=== PATIENT | female | born 1970 | race Caucasian/White ===

== ENCOUNTER 2022-03-13 20:53 | Emergency (ER) | payer OTHER, BC ==
[2022-03-13] MEDS ORDERED: Acetaminophen 325 MG Tab PO ONE (21:04)
[2022-03-13] MEDS ORDERED: Acetaminophen/HYDROcodone 325-10 MG Tab PO ONE (22:06)
[2022-03-13] MEDS ORDERED: Iopamidol 612 MG/ML 100 ML Bottle ONE (23:12)
[2022-03-13 23:13] LABS: ANION GAP 13.2 mmol/L (5-15)
[2022-03-14] MEDS ORDERED: Take Home: Acetaminophen/oxyCODONE 325-5 MG, 5 Tab Pack PO ONE (00:23)
[2022-03-14] MEDS ORDERED: Orphenadrine 100 MG Tab.ER PO ONE (21:00)
== END 2022-03-14 00:45 | disposition home or self-care (01) ==
LOC: VM.ED 20:53
DX: S13.4XXA Sprain of ligaments of cervical spine, initial encounter (principal); M43.6 Torticollis; I10 Essential (primary) hypertension; Z88.0 Allergy status to penicillin; V89.2XXA Person injured in unspecified motor-vehicle accident, traffic, initial encounter; Y92.410 Unspecified street and highway as the place of occurrence of the external cause
CPT/HCPCS: 80053; 81001; 85025; 99283; 99284; A9270-GY; Q9967

== ENCOUNTER 2025-02-27 07:45 | Day surgery (SDC) | payer BC, OTHER ==
[2025-02-27] MEDS ORDERED: fentaNYL 100 MCG/2 ML SDV ONE ×2 (07:54→09:20)
[2025-02-27] MEDS ORDERED: Propofol 200 MG/20 ML SDV ONE ×3 (07:54→10:46)
[2025-02-27] MEDS: Lactated Ringers 1,000 ML IV SCH (08:05)
[2025-02-27] MEDS: Esmolol 100 MG/10 ML SDV IVPUSH PRN (09:21)
[2025-02-27] MEDS ORDERED: hydrALAZINE 20 MG/ML SDV ONE (10:27)
== END 2025-02-27 12:52 | disposition home or self-care (01) ==
LOC: VM.SDS 07:45
PROVIDERS: ATTEND Student in an Organized Health Care Education/Training Program
DX: K62.5 Hemorrhage of anus and rectum (principal); I10 Essential (primary) hypertension; E66.9 Obesity, unspecified; K59.00 Constipation, unspecified; Z88.0 Allergy status to penicillin; Z79.82 Long term (current) use of aspirin; Z68.31 Body mass index [BMI] 31.0-31.9, adult; Z79.899 Other long term (current) drug therapy
CPT/HCPCS: 00812; J0360; J1805; J1920; J2704; J3010; J7120